=== PATIENT | male | born 1955 | race Caucasian/White ===

== ENCOUNTER 2023-12-16 13:59 | Emergency (ER) | payer MEDICARE, SELFPAY ==
[2023-12-16] VITALS (8 sets, daily range): BP systolic 98–135; BP diastolic 48–78; PULSE 73–85; RESP 15–20; TEMP 37.2; O2SAT 89–93
--- NOTE | 2023-12-16 14:06 | ED_ITS ---
HPI - Abdominal Pain 2 General: Chief Complaint: Weakness Stated Complaint: abd pain, weakness Time Seen by Provider: 12/16/23 14:05 History of Present Illness: 68-year-old male presents to the emergen cy department with his spouse. Spouse states that the patient has had weakness and epigastric pain for previous 3 days but this morning became incoherent, unable to answer questions and confused. He does appear to be in acute distress and is unable to provide any medical history. His is providing all the medical history for him. The states that the patient was doing just fine and as early as yesterday was walking with her and smoking cigarettes. She states he is not been to a physician in over 30 years has no past medical history takes no medications and is not allergic to any medicines. Review of Systems 2 General: Reports: 10 or more systems reviewed and unremarkable except in HPI and below Physical Exam 2 Narrative: EXAM NARRATIVE: Constitutional: Confused, acutely ill-appearing, moderate distress. Head, eyes, ears, nose, mouth, throat: Normocephalic, atraumatic. Pupils-equal, round, reactive to light. Scleral icterus noted. Normal-appearing external ears. Normal appearing nasal turbinates, no drainage. No obvious oral lesions, posterior oropharynx without erythema or exudates. Neck: Supple, trachea is midline, no lymphadenopathy, no jugular venous distension, thyromegaly, or carotid bruits. Carotid upstrokes are brisk bilaterally. Lungs: Rhonchorous breath sounds to the left, diminished significantly on the left side, expiratory wheezes intermittently bilaterally. Symmetrical rise and fall of chest, obvious increased work of breathing or now requiring 5 L nasal cannula to maintain an oxygen saturation of 89 to 90%. Cardiac: Regular rate and rhythm, positive S1, S2. No murmurs, rubs or gallops that I can appreciate Abdomen: Soft, non-tender to palpation, normal active bowel sounds to all quadrants. No palpable masses, no abdominal bruits, significant hepatomegaly noted.. Extremities: 2+ pulses in the upper extremities that are equal bilaterally, 2+ pulses in the lower extremities that are equal bilaterally. Non-edematous. Moves all extremities well, sensation to all extremities are noted. Skin: Warm, dry, intact. Jaundiced. Neurological: Alert to person only, confused, agitated Course 2 Vital Signs: Vital signs: Vital Signs Temperature 98.9 F 12/16/23 19:37 Pulse Rate 76 12/16/23 19:37 Respiratory Rate 18 12/16/23 19:37 Blood Pressure 135/78 12/16/23 19:37 Pulse Oximetry 93 12/16/23 19:37 Oxygen Delivery Me thod Nasal Cannula 12/16/23 18:31 Oxygen Flow Rate 5 12/16/23 18:31 MDM - Abdominal Pain Medical Decision Making Physical exam completed and documented I did obtain a chest x-ray and a CT scan of the patient's head given his confusion I also obtained a CT scan of his chest with IV contrast which demonstrated a large left lung mass encroaching and involving the mediastinum as well as compromising multiple bronchi and narrowing pulmonary arteries. CBC and CMP as well as lactic and procalcitonin were obtained patient's platelets returned at a level of 45, his lactic acid was 8.9., calcium level was 14.9, procalcitonin 5.69, patient's ammonia level was 111, lipase was 34. Patient's total bilirubin was 5.1, AST 557, ALT 373, alkaline phosphatase was 83, BUN 55 creatinine 1.5. Patient's anion gap was 30. Lab Data I reviewed the patient's lab results. 12/16/23 14:36 12/16/23 14:36 Labs/Radiology: Radiology Impressions Head CT 12/16/23 14:42 IMPRESSION: 1. No large territorial infarct or intracranial bleed. 2. Findings suggestive left frontal and left maxillary acute sinusitis. Chest X-Ray 12/16/23 14:44 IMPRESSION: Left mid and lower lung zone ground-glass infiltrates. Chest CT 12/16/23 15:15 IMPRESSION: 1. Very large infiltrating tumor of the left lung and mediastinum with pleural effusion 2. Poorly defined nodularity of the liver suggesting metastatic disease Abdomen/Pelvis CT 12/16/23 17:58 IMPRESSION: 1. Hepatic and ralph metastases. 2. Airspace opacities in the left lung base are concerning for postobstructive pneumonia. 3. Complex left-sided pleural effusion compatible with a parapneumonic and/or malignant effusion. 4. Mild aneurysmal dilatation of the infrarenal abdominal aorta. 5. Enlarged prostate. Consider correlation with serum laboratory findings and outpatient urologic evaluation. The findings were verbally communicated by telephone with Dr. ENCINAS at 7:05 PM CDT on 12/16/2023. Laboratory Results WBC 6.74 10^3/uL (3.29-11.43) 12/16/23 14:36 Corrected WBC 6.5 10^3/cmm (4.8-10.8) 12/16/23 14:36 RBC 4.59 10^6/uL (3.85-5.65) 12/16/23 14:36 Hgb 13.20 g/dL (11.27-16.99) 12/16/23 14:36 Hct 40.6 % (37-53) 12/16/23 14:36 MCV 88.5 fl (82-101) 12/16/23 14:36 MCH 28.8 pg (27-33) 12/16/23 14:36 MCHC 32.5 g/dL (30-55) 12/16/23 14:36 RDW 14.7 % (12.1-15.1) 12/16/23 14:36 Plt Count 45 10^3/cmm (157-399) L 12/16/23 14:36 MPV 10.5 fL (7.4-10.4) H 12/16/23 14:36 Lymph % (Auto) Not Reportable 12/16/23 14:36 Edmunds % (Auto) Not Reportable 12/16/23 14:36 Lymph # (Auto) Not Reportable 12/16/23 14:36 Edmunds # (Auto) Not Reportable 12/16/23 14:36 Total Counted 100 (0-100) 12/16/23 14:36 Atypical Lymphs % 0.0 % (0-5) 12/16/23 14:36 Absolute Neutrophils 3.2 10^3/cmm (1.4-6.5) 12/16/23 14:36 Segmented Neutrophils 35 % 12/16/23 14:36 Abs Segm Neuts (Man) 2.4 10/cmm (1.6-7.1) 12/16/23 14:36 Band Neutrophils 12.0 % 12/16/23 14:36 Abs Band Neuts (Man) 0.8 10^3/cmm (0.0-1.2) 12/16/23 14:36 Absolute Lymphocytes 2.0 10^3/cmm (1.2-3.4) 12/16/23 14:36 Lymphocytes (Manual) 30 % 12/16/23 14:36 Monocytes (Manual) 3.0 % 12/16/23 14:36 Absolute Monocytes 0.2 10^3/cmm (0.1-0.6) 12/16/23 14:36 Eosinophils (Manual) 15 % 12/16/23 14:36 Absolute Eosinophils 1.0 10^3/cmm (0.0-0.7) H 12/16/23 14:36 Basophils (Manual) 0.0 % 12/16/23 14:36 Absolute Basophils 0.0 10^3/cmm (0.0-0.2) 12/16/23 14:36 Metamyelocytes 4.0 % 12/16/23 14:36 Myelocytes 1.0 % 12/16/23 14:36 Nucleated RBCs 4.0 /100WBC (0-1) H 12/16/23 14:36 Platelet Estimate Decreased (Normal) 12/16/23 14:36 Anisocytosis 1+ H 12/16/23 14:36 PT 15.80 SECONDS (12.1-14.9) H 12/16/23 14:36 INR 1.22 (0.8-1.2) H 12/16/23 14:36 Specimen Type Arterial 12/16/23 15:26 Sample Site Radial, right 12/16/23 15:26 ABG pH 7.41 (7.35-7.45) 12/16/23 15:26 ABG pCO2 32.8 mmHg (35-45) L 12/16/23 15:26 ABG pO2 84.8 mmHg (80.0-100.0) 12/16/23 15:26 ABG PO2/FiO2 Ratio 0 12/16/23 15:26 ABG HCO3 21.0 mmol/L (22-26) L 12/16/23 15:26 ABG O2 Saturation 89.4 12/16/23 15:26 ABG Base Excess -2.9 mmol/L (-2.0-2.0) L 12/16/23 15:26 Eugenio Test Pos 12/16/23 15:26 A-a O2 Gradient 13.1 mmHg (5-10) H 12/16/23 15:26 Hematocrit 37.1 % (42-52) L 12/16/23 15:26 Hgb O2 Saturation 87.4 % (95-100) L 12/16/23 15:26 Carboxyhemoglobin 1.6 %THgb (0.4-20.1) 12/16/23 15:26 Methemoglobin 0.5 % (0.4-1.5) 12/16/23 15:26 Total Hemoglobin 12.1 g/dL (14-18) L 12/16/23 15:26 Sodium 132.0 mmol/L (131-143) 12/16/23 15:26 Potassium 4.2 mmol/L (3.5-5.0) 12/16/23 15:26 Glucose 71.0 mg/dL (70-115) 12/16/23 15:26 Ionized Calcium 2.0 mmol/L (1.1-1.4) H* 12/16/23 15:26 O2 Delivery Device Nc 12/16/23 15:26 O2 Liters/Min 3.0 % 12/16/23 15:26 FiO2 32.0 % 12/16/23 15:26 Flight Steward ID Amh 12/16/23 15:26 Sodium 134 mmol/L (136-145) L 12/16/23 14:36 Potassium 5.1 mmol/L (3.5-5.1) 12/16/23 14:36 Chloride 93 mmol/L (98-107) L 12/16/23 14:36 Carbon Dioxide 16 mmol/L (22-29) L 12/16/23 14:36 Anion Gap 30.1 (5-19) H 12/16/23 14:36 BUN 55 mg/dL (8-23) H 12/16/23 14:36 Creatinine 1.5 mg/dL (0.7-1.2) H 12/16/23 14:36 GFR Calculation 46.3 mL/min (90-130) L 12/16/23 14:36 Glucose 82 mg/dL (65-115) 12/16/23 14:36 Calculated Osmolality 292 mOsm/kg (285-295) 12/16/23 14:36 Lactic Acid 8.9 mmol/L (0.5-2.2) H* 12/16/23 14:36 Lactic Acid (Sepsis) 7.3 mmol/L (0.5-2.2) H* 12/16/23 18:33 Calcium 14.9 mg/dL (8.5-10.5) H* 12/16/23 14:36 Total Bilirubin 5.1 mg/dL (0.15-1.2) H 12/16/23 14:36 AST 557 U/L (0-40) H 12/16/23 14:36 ALT 273 U/L (0-41) H 12/16/23 14:36 Alkaline Phosphatase 803 U/L (40-130) H 12/16/23 14:36 Ammonia 111 umol/L (16-60) H 12/16/23 14:36 Troponin T Baseline 16 ng/L (0-15) H 12/16/23 14:36 Troponin T 120 Minute 14.13 ng/L (0-15) 12/16/23 17:20 Delta Troponin T -1.87 ABS# (0-10) L 12/16/23 17:20 Troponin T Hi Sens 6Hr 13.88 ng/L (0-15) 12/16/23 19:09 Troponin T Hi Sens 6Hr Delta -2.12 ng/L (0-12) L 12/16/23 19:09 NT-Pro-B Natriuret Pep 727 pg/mL (0-125) H 12/16/23 14:36 Total Protein 4.9 g/dL (6.6-8.7) L 12/16/23 14:36 Albumin 2.7 g/dL (3.5-5.2) L 12/16/23 14:36 Globulin 2.2 g/dL (1.3-4.6) 12/16/23 14:36 Lipase 34 U/L (13-60) 12/16/23 14:36 Procalcitonin 5.69 ng/mL (0-0.5) H 12/16/23 14:36 Urine Color Nida (Yellow) 12/16/23 15:01 Urine Appearance Clear (CLEAR) 12/16/23 15:01 Urine pH 5 (5-7) 12/16/23 15:01 Ur Specific [place] 1.025 (1.005-1.030) 12/16/23 15:01 Urine Protein Neg (Negative) 12/16/23 15:01 Urine Glucose (UA) Norm (Normal) 12/16/23 15:01 Urine Ketones 1+ (Negative) H 12/16/23 15:01 Urine Blood Trace (Negative) H 12/16/23 15:01 Urine Nitrate Negative (Negative) 12/16/23 15:01 Urine Bilirubin 2+ (Negative) H 12/16/23 15:01 Urine Urobilinogen 8 mg/dL (Negative) H 12/16/23 15:01 Ur Leukocyte Esterase Negative (Negative) 12/16/23 15:01 Urine RBC Rare /hpf (0-2) 12/16/23 15:01 Urine WBC 0-4 /hpf (0-5) H 12/16/23 15:01 Ur Squamous Epith Cells None /hpf (0-5) 12/16/23 15:01 Amorphous Sediment Not Reportable 12/16/23 15:01 Urine Bacteria 1+ /hpf (NONE) H 12/16/23 15:01 Hyaline Casts 40-55 /lpf H 12/16/23 15:01 Urine Mucus Trace /hpf 12/16/23 15:01 Ethyl Alcohol < 10 mg/dL (0-10) 12/16/23 14:36 Influenza Type A Ag negative (Negative) 12/16/23 15:43 Influenza Type B Ag negative (Negative) 12/16/23 15:43 SARS-CoV-2 Ag (Rapid) negative (Negative) 12/16/23 15:43 All radiology interpretation(s) finalized by discharge EKG Data EKG 1: Interpretation: Twelve-lead EKG obtained at 1419 and reviewed at 1421 demonstrates sinus rhythm with a ventricular rate of 79 bpm, [place] interval 143, QRS duration 94, QT 4 1, QTc [address] elevation or depression to demonstrate acute ischemia or infarction at present. EKG 2: Interpretation: Twelve-lead EKG obtained at 1609 and reviewed at 1611 demonstrates sinus rhythm with a ventricular rate of 79, [place] interval 155, QRS duration 105, QT 404, QTc 439, there is no ST elevation or depression to demonstrate acute ischemia or infarction at present. Critical Care Time 2 Critical Care Time: Critical Care Time: Yes Total Critical Care Time: 45 Attestation: The patients was emergently evaluated as this patient's presentation and case had a high probability of a clinically significant, sudden, or life threatening deterioration of this patient's initial critical presentation or condition which required my full and direct attention, intervention and personal management. Discharge Plan Discharge Patient Disposition: Xfer Short-Term Hosp Clinical Impression: Acute respiratory failure with hypoxemia, Hypercalcemia, Thrombocytopenia, Hyperammonemia Altered mental status Qualifiers: Altered mental status type: unspecified Qualified Code(s): R41.82 - Altered mental status, unspecified Lung cancer Qualifiers: Laterality: left Lung location: lower lobe of lung Qualified Code(s): C34.32 - Malignant neoplasm of lower lobe, left bronchus or lung Acute hepatic failure Qualifiers: Hepatic coma status: without hepatic coma Qualified Code(s): K72.00 - Acute and subacute hepatic failure without coma Condition: Stable Coding Level of Care Code ED University Counselor for Lashawn Kim
--- NOTE | 2023-12-16 14:19 | ECG_ITS ---
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 Measurements Intervals [place] Rate: 79 P: 64 DC: 143 QRS: 90 QRSD: 94 T: 76 QT: 401 QTc: 461 Interpretive Statements SINUS RHYTHM WITH baseline artifact. Early repolarization changes No previous ECG available for comparison Electronically Signed On 12-16-2023 19:40:09 CDT by Cindy Dubois M.D. [id number]
--- NOTE | 2023-12-16 14:42 | CTR_ITS ---
PROCEDURE INFORMATION: Exam: CT Head Without Contrast Exam date and time: 12/16/2023 3:16 PM Age: 68 years old Clinical indication: Altered mental status/memory loss; Additional info: AMS TECHNIQUE: Imaging protocol: Computed tomography of the head without contrast. Radiation optimization: All CT scans at this facility use at least one of these dose optimization techniques: automated exposure control; mA and/or kV adjustment per patient size (includes targeted exams where dose is matched to clinical indication); or iterative reconstruction. COMPARISON: No relevant prior studies available. RADIATION DOSE METRICS: Total DLP (mGy-cm): 876.08 FINDINGS: Brain: Normal. No hemorrhage. Unremarkable white matter. No mass effect. Cerebral ventricles: No ventriculomegaly. Paranasal sinuses: There is mucosal disease of the left maxillary and left frontal sinuses with frothy secretions. Mastoid air cells: Visualized mastoid air cells are well aerated. Bones/joints: Unremarkable. No acute fracture. Soft tissues: Unremarkable. CT/CT head wo con* [id number] IMPRESSION: 1. No large territorial infarct or intracranial bleed. 2. Findings suggestive left frontal and left maxillary acute sinusitis.
--- NOTE | 2023-12-16 14:44 | XRR_ITS ---
PROCEDURE INFORMATION: Exam: XR Chest Exam date and time: 12/16/2023 3:04 PM Age: 68 years old Clinical indication: Other: AMS TECHNIQUE: Imaging protocol: Radiologic exam of the chest. Views: 1 view. COMPARISON: No relevant prior studies available. FINDINGS: Lungs: There are left mid and lower lung zone ground-glass infiltrates. Pleural spaces: Unremarkable. No pleural effusion. No pneumothorax. Heart/Mediastinum: Unremarkable. No cardiomegaly. Bones/joints: Moderate degenerative of bilateral acromioclavicular joints. XR/XR chest 1V portable [id number] IMPRESSION: Left mid and lower lung zone ground-glass infiltrates.
[2023-12-16 15:14] LABS: Hematocrit 40.6 % (37-53); Mean Corpuscular HGB Conc 32.5 g/dL (30-55); Mean Corpuscular Hemoglobin 28.8 pg (27-33); Mean Corpuscular Volume 88.5 fl (82-101); Platelet Count 45 10^3/cmm (157-399); Red Blood Count 4.59 10^6/uL (3.85-5.65); Red Cell Distribution Width 14.7 % (12.1-15.1); White Blood Count 6.74 10^3/uL (3.29-11.43)
--- NOTE | 2023-12-16 15:15 | CTR_ITS ---
PROCEDURE INFORMATION: Exam: CT Chest With Contrast; Diagnostic Exam date and time: 12/16/2023 3:23 PM Age: 68 years old Clinical indication: Shortness of breath; Additional info: Dyspnea TECHNIQUE: Imaging protocol: Diagnostic computed tomography of the chest with contrast. Radiation optimization: All CT scans at this facility use at least one of these dose optimization techniques: automated exposure control; mA and/or kV adjustment per patient size (includes targeted exams where dose is matched to clinical indication); or iterative reconstruction. Contrast material: OMNI 350; Contrast volume: 80 ml; Contrast route: INTRAVENOUS (IV); COMPARISON: CR (CHEST, ) 12/16/2023 3:04 PM RADIATION DOSE METRICS: Total DLP (mGy-cm): 564.88 FINDINGS: Lungs: There is a very large infiltrating tumor that occupies most of the left lower lobe. The tumor infiltrates the left hilum and encases the pulmonary arteries causing pulmonary artery narrowing. In addition, there is occlusion involving multiple bronchi. The tumor also extends medially to involve the subcarinal space as well as the AP window of the mediastinum. Extensive tumor also involves the left upper anterior mediastinum. Tumor also infiltrates the vessels of the left upper lung field. Patchy nodular infiltrate is noted throughout most of the remaining left lung. A moderate left pleural effusion is noted. Pleural spaces: See Lungs finding. Heart: Unremarkable. No cardiomegaly. No pericardial effusion. Lymph nodes: Unremarkable. No enlarged lymph nodes. Vasculature: See Lungs finding. Liver: There is poorly defined nodularity involving the liver. Bones/joints: Unremarkable. No acute fracture. Soft tissues: Unremarkable. CT/CT chest w con* [id number] IMPRESSION: 1. Very large infiltrating tumor of the left lung and mediastinum with pleural effusion 2. Poorly defined nodularity of the liver suggesting metastatic disease
[2023-12-16 15:28] LABS: Mean Platelet Volume 10.5 fL (7.4-10.4)
[2023-12-16 15:29] LABS: Slide Review Slide Review Perform
[2023-12-16] MEDS: iohexol 350 mg/mL 500 mL Btl (per mL) IV ×2 (15:29→18:20)
[2023-12-16 15:33] LABS: Absolute Segmented Neutrophil 2.4 10/cmm (1.6-7.1); Band Neutrophils Absolute 0.8 10^3/cmm (0.0-1.2); Corrected White Blood Count 6.5 10^3/cmm (4.8-10.8); Eosinophils 15 %; Lymphocytes 30 %; Monocytes Absolute 0.2 10^3/cmm (0.1-0.6); Segmented Neutrophils 35 %; Total Cells Counted 100 (0-100)
[2023-12-16 15:34] LABS: Absolute Neutrophil 3.2 10^3/cmm (1.4-6.5); Anisocytosis 1+; Platelet Estimate Decreased (Normal)
[2023-12-16 15:36] LABS: INR 1.22 (0.8-1.2)
[2023-12-16 15:37] LABS: ABG PCO2 32.8 mmHg (35-45); ABG PH Result 7.41 (7.35-7.45); Alveolar-Arterial Oxygen Gradi 13.1 mmHg (5-10); Arterial Blood Gas Hematocrit 37.1 % (42-52); Base Excess ABG -2.9 mmol/L (-2.0-2.0); Blood Gas Allen Test Pos; Blood Gas Operator Identificat AMH; Blood Gas Sample Site Radial, right; Blood Gas Sample Type Arterial; Carboxyhemoglobin 1.6 %THgb (0.4-20.1); HGB O2 Sat 87.4 % (95-100); Methemoglobin 0.5 % (0.4-1.5); Oxygen Device NC; Oxygen Saturation ABG 89.4; PO2 ABG 84.8 mmHg (80.0-100.0); PO2 FiO2 Ratio Arterial Blood 0; Potassium Level - ABG 4.2 mmol/L (3.5-5.0); Total Hemoglobin 12.1 g/dL (14-18)
[2023-12-16 15:38] LABS: Protein Urine Neg (Negative); Specific Gravity, Urine 1.025 (1.005-1.030); Urine Appearance Clear (CLEAR); Urine Color Amber (Yellow); pH Urine 5 (5-7)
[2023-12-16 15:41] LABS: Glucose Urine UA Norm (Normal); Ketones Urine 1+ (Negative)
[2023-12-16 15:42] LABS: Troponin(5th) Baseline 16 ng/L (0-15)
[2023-12-16 15:42] LABS: Add Urine Culture? No; Add Urine Microscopic? YES; Bacteria Urine 1+ /hpf; Bilirubin Urine 2+ (Negative); Blood Urine Trace (Negative); Hyaline Casts Urine 40-55 /lpf; Leukocyte Esterase Urine Negative (Negative); Mucus Urine TRACE /hpf; Nitrate Urine Negative (Negative); RBC Urine RARE /hpf (0-2); Urobilinogen Urine 8 mg/dL (Negative); WBC Urine 0-4 /hpf (0-5)
[2023-12-16 15:45] LABS: Ammonia 111 umol/L (16-60); Lactic Sepsis W/Reflex 8.9 mmol/L (0.5-2.2)
[2023-12-16 15:50] LABS: NT Pro B Type Natriuretic Pept 727 pg/mL (0-125); Procalcitonin 5.69 ng/mL (0-0.5)
[2023-12-16 16:01] LABS: Alanine Aminotransferase 273 U/L (0-41); Albumin Level 2.7 g/dL (3.5-5.2); Alkaline Phosphatase 803 U/L (40-130); Anion Gap 30.1 (5-19); Aspartate Amino Transferase 557 U/L (0-40); Blood Urea Nitrogen 55 mg/dL (8-23); Carbon Dioxide 16 mmol/L (22-29); Chloride 93 mmol/L (98-107); Globulin 2.2 g/dL (1.3-4.6); Glomerular Filtration Rate 46.3 mL/min (90-130); Glucose 82 mg/dL (65-115); Lipase 34 U/L (13-60); Osmolality Calculated 292 mOsm/kg (285-295); Potassium 5.1 mmol/L (3.5-5.1); Sodium 134 mmol/L (136-145); Total Bilirubin 5.1 mg/dL (0.15-1.2); Total Protein 4.9 g/dL (6.6-8.7)
[2023-12-16 16:02] LABS: Alcohol Level < 10 mg/dL (0-10)
[2023-12-16 16:03] LABS: Calcium 14.9 mg/dL (8.5-10.5)
[2023-12-16 16:07] LABS: Influenza A by IFA negative (Negative); Influenza B by IFA negative (Negative)
--- NOTE | 2023-12-16 16:09 | ECG_ITS ---
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 Measurements Intervals [place] Rate: 79 P: 70 [place]: 155 QRS: 90 QRSD: 105 T: 79 QT: 404 QTc: 464 Interpretive Statements SINUS RHYTHM Compared to ECG 12/16/2023 14:19:02 Ventricular premature complex(es) no longer present Electronically Signed On 12-16-2023 20:04:21 CDT by Cindy Dubois M.D. [id number]
[2023-12-16 16:24] LABS: SARS Covid-2 Antigen negative (Negative)
[2023-12-16 16:56] LABS: Reflex Lactate Order REFLEX LACTIC ORDERD
[2023-12-16] MEDS: cefTRIAXone 2,000 MG in sodium chloride 0.9% (plus) 50 ML 100 MG IV (16:56)
[2023-12-16] MEDS: sodium chloride 0.9% 1,000 ML 999 ML IV (16:56)
[2023-12-16 17:46] LABS: Troponin 5 2HR 14.13 ng/L (0-15)
[2023-12-16 17:48] LABS: Troponin 5 2HR Delta -1.87 ABS# (0-10)
--- NOTE | 2023-12-16 17:58 | CTR_ITS ---
PROCEDURE INFORMATION: Exam: CT Abdomen And Pelvis With Contrast Exam date and time: 12/16/2023 6:19 PM Age: 68 years old Clinical indication: Other: Abnormal liver; Abdominal pain; Patient HX: C/O epigastric pain. Concern for metastatic presentation of liver noted on chest CT performed earlier today. ; Additional info: Abd pain TECHNIQUE: Imaging protocol: Computed tomography of the abdomen and pelvis with contrast. Radiation optimization: All CT scans at this facility use at least one of these dose optimization techniques: automated exposure control; mA and/or kV adjustment per patient size (includes targeted exams where dose is matched to clinical indication); or iterative reconstruction. Contrast material: OMNI 350; Contrast volume: 80 ml; Contrast route: INTRAVENOUS (IV); COMPARISON: CT chest w con* [id number] 12/16/2023 3:23 PM RADIATION DOSE METRICS: Total DLP (mGy-cm): 617.23 FINDINGS: Lungs: Please see separate report of concurrent CT of the chest for findings above the diaphragm. Airspace opacities in the left lung base are concerning for postobstructive pneumonia. Complex left-sided pleural effusion compatible with a parapneumonic and/or malignant effusion. Diaphragm: No evidence of diaphragmatic defect. Liver: Diffuse hepatic metastatic disease. Gallbladder and bile ducts: Unremarkable. No intra-hepatic or extra-hepatic biliary dilatation. Pancreas: Mildly atrophic. Otherwise grossly unremarkable. Spleen: Unremarkable. Adrenal glands: Unremarkable. Kidneys and ureters: No renal parenchymal abnormality. No hydronephrosis or ureteral stone. Stomach and bowel: No evidence of bowel obstruction or perienteric inflammatory changes. Appendix: Normal appendix. Intraperitoneal space: No evidence of free air or fluid collection. Vasculature: Mild fusiform aneurysmal dilatation of the infrarenal abdominal aorta to 3.5 cm with mural thrombus of the right lateral aspect of the lumen. No evidence of dissection. The celiac trunk, SMA and REYNALDO are grossly patent. No evidence of IVC thrombus. The portal vein, SMV and splenic veins are grossly patent. Lymph nodes: There is retrocrural and upper abdominal adenopathy, including prominent veronica hepatic and portacaval nodes. Urinary bladder: Indenting of the bladder base by the prostate. The bladder is filled with excreted contrast. Otherwise grossly unremarkable. Reproductive: Enlarged prostate measuring 5 cm. Consider correlation with serum laboratory findings and outpatient urologic evaluation. Bones/joints: No evidence of acute fracture or aggressive osseous lesion. Soft tissues: No evidence of fluid collection or hematoma in the superficial soft tissues. CT/CT abdomen pelvis w con* [id number] IMPRESSION: 1. Hepatic and ralph metastases. 2. Airspace opacities in the left lung base are concerning for postobstructive pneumonia. 3. Complex left-sided pleural effusion compatible with a parapneumonic and/or malignant effusion. 4. Mild aneurysmal dilatation of the infrarenal abdominal aorta. 5. Enlarged prostate. Consider correlation with serum laboratory findings and outpatient urologic evaluation. The findings were verbally communicated by telephone with Dr. ENCINAS at 7:05 PM CDT on 12/16/2023.
[2023-12-16 19:00] LABS: Lactic Acid level (Lactate) 7.3 mmol/L (0.5-2.2)
[2023-12-16 19:46] LABS: Troponin 5 6HR 13.88 ng/L (0-15)
[2023-12-16 19:47] LABS: Troponin 5 6HR Delta -2.12 ng/L (0-12)
== END 2023-12-16 19:39 | disposition short-term general hospital (02) ==
PROVIDERS: Emergency Provider Internal Medicine
DX: R41.82 Altered mental status, unspecified (principal); J96.01 Acute respiratory failure with hypoxia; E83.52 Hypercalcemia; D69.6 Thrombocytopenia, unspecified; E72.20 Disorder of urea cycle metabolism, unspecified; C34.32 Malignant neoplasm of lower lobe, left bronchus or lung; K72.00 Acute and subacute hepatic failure without coma; Z11.52 Encounter for screening for COVID-19
CPT/HCPCS: 36415; 36600; 70450; 71045; 71260; 74177; 80051; 80053; 80307; 81001; 82140; 82330; 82805; 83605; 83690; 83880; 84145; 84484; 85007; 85025; 85610; 87040; 87426; 87804; 93005; 96361; 96365; 99285; 99291; J0696; J7030; Q9967